=== PATIENT | male | born 1950 | race Caucasian/White ===

== ENCOUNTER → 2017-05-07 | Outpatient (CLI) | payer MEDICARE ==
[~2017-05-07] MED LIST: ASPIRIN81 M1 PO; JANUVIA25 MG PO; KEFLEX500 MG PO; METFORMIN500 MG PO; ZOCOR10 MG PO
== END | disposition home or self-care (01) ==
LOC: RAD 13:27
DX: M48.061 Spinal stenosis, lumbar region without neurogenic claudication (principal); M99.03 Segmental and somatic dysfunction of lumbar region

== ENCOUNTER → 2017-06-23 | Outpatient (CLI) | payer MEDICARE | END | disposition home or self-care (01) | LOC: D 10:32 | DX: E11.40 Type 2 diabetes mellitus with diabetic neuropathy, unspecified (principal) ==

== ENCOUNTER 2019-03-03 13:56 | Emergency (ER) | payer MEDICARE ==
[~2019-03-03] VITALS: Ht 182.8 cm; Wt 102.1 kg
[2019-03-03] MEDS ORDERED: CYCLOBENZAPRINE10 MG PO (15:58)
== END 2019-03-03 16:00 | disposition home or self-care (01) ==
LOC: ED 13:56
DX: M62.830 Muscle spasm of back (principal); M54.6 Pain in thoracic spine; E11.9 Type 2 diabetes mellitus without complications; Z88.8 Allergy status to other drugs, medicaments and biological substances; Z79.899 Other long term (current) drug therapy; Z79.82 Long term (current) use of aspirin

== ENCOUNTER 2019-04-11 09:24 | Emergency (ER) | payer MEDICARE ==
[~2019-04-11] VITALS: Ht 182.8 cm; Wt 103.4 kg
[~2019-04-11 09:24] MED LIST changes: +CYCLOBENZAPRINE10 MG PO
== END 2019-04-11 11:24 | disposition home or self-care (01) ==
LOC: ED 09:24
DX: M25.561 Pain in right knee (principal); Z88.8 Allergy status to other drugs, medicaments and biological substances; Z79.899 Other long term (current) drug therapy; Z79.82 Long term (current) use of aspirin; W18.39XA Other fall on same level, initial encounter; Y93.89 Activity, other specified; Y92.89 Other specified places as the place of occurrence of the external cause; Y99.8 Other external cause status

== ENCOUNTER 2020-04-01 12:14 | Emergency (ER) | payer MEDICARE ==
[2020-04-01 14:16] LABS: BASO % 0.3 % (0.0-1.0); EOS % 0.5 % (1.0-4.0); HEMATOCRIT 44.3 % (42.0-52.0); LYMPH # 0.9 10*3/uL (1.3-4.4); LYMPH % 24.9 % (27.0-41.0); MEAN CELL VOLUME 88.2 fl (80.0-94.0); MEAN CORPUSCULAR HGB 29.7 pg (27.0-31.0); MEAN CORPUSCULAR HGB CONC 33.6 g/dl (33.0-37.0); MEAN PLATELET VOLUME 10.3 fl (9.6-12.3); MONO # 0.4 10*3/uL (0.1-1.0); MONO % 11.9 % (3.0-9.0); NEUT # 2.3 10*3/uL (2.3-7.9); NEUT % 61.6 % (47.0-73.0); PLATELET COUNT AUTOMATED 150 10*3/uL (130-400); RED BLOOD COUNT 5.02 10*6/uL (4.50-5.90); RED CELL DISTRI WIDTH 12.2 % (0-14.5); WHITE BLOOD COUNT 3.7 10*3/uL (4.8-10.8)
[2020-04-01 14:29] LABS: ACT PARTIAL THROMBO TIME 26.5 SECONDS (20.0-32.1)
[2020-04-01 14:35] LABS: ALBUMIN 3.8 gm/dl (3.1-4.5); ALKALINE PHOSPHATASE 72 U/L (45-117); BUN 13 mg/dl (7-24); CHLORIDE 106 mmol/L (98-107); CREATININE 1.05 mg/dL (0.70-1.30); LIPASE 217 U/L (73-393); POTASSIUM 3.7 mmol/L (3.5-5.1); SGOT/AST 17 IU/L (3-35); SGPT/ALT 34 U/L (12-78); SODIUM 138 mmol/L (136-145); TOTAL PROTEIN 7.8 gm/dL (6.4-8.2)
[2020-04-01 14:36] LABS: TROPONIN I < 0.015 ng/ml (<0.045)
[2020-04-01] MEDS ORDERED: ZITHROMAX250 MG PO (16:25)
== END 2020-04-01 16:31 | disposition home or self-care (01) ==
LOC: ED 12:14
PROVIDERS: Emergency Medicine
DX: J06.9 Acute upper respiratory infection, unspecified (principal); Z20.828 Contact with and (suspected) exposure to other viral communicable diseases; J20.9 Acute bronchitis, unspecified; R79.1 Abnormal coagulation profile; Z88.8 Allergy status to other drugs, medicaments and biological substances; Z79.899 Other long term (current) drug therapy; Z79.82 Long term (current) use of aspirin

== ENCOUNTER 2022-03-03 18:14 | Emergency (ER) | payer MEDICARE ==
[~2022-03-03] VITALS: Ht 182.8 cm; Wt 106.6 kg
[~2022-03-03 18:14] MED LIST changes: +ZITHROMAX250 MG PO
== END 2022-03-03 21:02 | disposition home or self-care (01) ==
LOC: ED 18:14
DX: S40.011A Contusion of right shoulder, initial encounter (principal); S60.811A Abrasion of right wrist, initial encounter; Z88.8 Allergy status to other drugs, medicaments and biological substances; Z79.899 Other long term (current) drug therapy; Z79.2 Long term (current) use of antibiotics; Z79.82 Long term (current) use of aspirin; W01.198A Fall on same level from slipping, tripping and stumbling with subsequent striking against other object, initial encounter; Y93.01 Activity, walking, marching and hiking; Y92.59 Other trade areas as the place of occurrence of the external cause; Y99.8 Other external cause status

== ENCOUNTER 2022-09-11 14:30 | Emergency (ER) | payer MEDICARE ==
[~2022-09-11] VITALS: Wt 104.3 kg
[2022-09-11] MEDS ORDERED: METHOCARBAMOL500 M1 PO (16:48)
[2022-09-11] MEDS ORDERED: PREDNISONE20 M1 PO (16:48)
== END 2022-09-11 16:55 | disposition home or self-care (01) ==
LOC: ED 14:30
DX: M54.31 Sciatica, right side (principal); Z88.8 Allergy status to other drugs, medicaments and biological substances

== ENCOUNTER → 2023-07-15 | Outpatient (CLI) | payer MEDICARE ==
[~2023-07-15] MED LIST changes: +METHOCARBAMOL500 M1 PO; +PREDNISONE20 M1 PO
== END | disposition home or self-care (01) ==
LOC: RESCLI 14:06
PROVIDERS: ATTEND Internal Medicine
DX: E11.40 Type 2 diabetes mellitus with diabetic neuropathy, unspecified (principal); K21.9 Gastro-esophageal reflux disease without esophagitis; E78.5 Hyperlipidemia, unspecified; J45.909 Unspecified asthma, uncomplicated; N40.0 Benign prostatic hyperplasia without lower urinary tract symptoms; I10 Essential (primary) hypertension; Z98.890 Other specified postprocedural states; Z79.82 Long term (current) use of aspirin; Z79.84 Long term (current) use of oral hypoglycemic drugs; Z79.899 Other long term (current) drug therapy

== ENCOUNTER 2023-10-15 18:20 | Emergency (ER) | payer MEDICARE ==
[~2023-10-15] VITALS: Wt 98.9 kg
[2023-10-15 18:57] LABS: BASO % 0.4 % (0.0-1.0); EOS % 0.2 % (1.0-4.0); HEMATOCRIT 45.9 % (42.0-52.0); LYMPH # 0.7 10*3/uL (1.3-4.4); LYMPH % 13.9 % (27.0-41.0); MEAN CELL VOLUME 92.4 fl (80.0-94.0); MEAN CORPUSCULAR HGB CONC 32.5 g/dl (33.0-37.0); MEAN PLATELET VOLUME 9.9 fl (9.6-12.3); MONO # 0.5 10*3/uL (0.1-1.0); MONO % 9.3 % (3.0-9.0); NEUT # 3.7 10*3/uL (2.3-7.9); NEUT % 75.8 % (47.0-73.0); PLATELET COUNT AUTOMATED 142 10*3/uL (130-400); RED BLOOD COUNT 4.97 10*6/uL (4.50-5.90); WHITE BLOOD COUNT 4.8 10*3/uL (4.8-10.8)
[2023-10-15 19:18] LABS: BILIRUBIN Negative (Negative); BLOOD Negative (Negative); CLARITY Clear (Clear); COLOR Yellow (Yellow); GLUCOSE 3+ (Negative); KETONE 1+ (Negative); LEUKO ESTERASE Negative (Negative); NITRITE Negative (Negative); PH 5.5 (4.5-8.0); SPECIFIC GRAVITY >= 1.030 (1.001-1.030); UROBILINOGEN 0.2 E.U./dl (0.0-1.0)
[2023-10-15 19:25] LABS: ALKALINE PHOSPHATASE 97 U/L (46-116); BUN 12 mg/dl (9-23); CHLORIDE 104 mmol/L (98-107); SGPT/ALT 75 U/L (5-49); TOTAL PROTEIN 7.1 gm/dL (6.0-8.0)
[2023-10-15 19:26] LABS: EPITHELIAL CELLS 0-2; WBC 0-2 wbc/hpf (0-5)
== END 2023-10-15 19:57 | disposition home or self-care (01) ==
LOC: ED 18:20
PROVIDERS: Nurse Practitioner Family
DX: B34.9 Viral infection, unspecified (principal); R11.0 Nausea; Z88.8 Allergy status to other drugs, medicaments and biological substances

== ENCOUNTER 2025-01-07 09:38 | Emergency (ER) | payer MEDICARE ==
[~2025-01-07] VITALS: Ht 182.8 cm; Wt 99.3 kg
[~2025-01-07 09:38] MED LIST changes: +CREON DR 36,001 EAC1 PO; +JARDIANCE10 MG PO; +METFORMIN HYD1000 MG PO; -METFORMIN500 MG PO; +NEURONTIN300 MG PO
[2025-01-07] MEDS ORDERED: Sulfamethoxazole/Trimethopri 1 TAB TAB PO ONE (10:30)
[2025-01-07] MEDS ORDERED: SEPTDS PO (11:00)
== END 2025-01-07 11:10 | disposition home or self-care (01) ==
LOC: ED 09:38
DX: S50.11XA Contusion of right forearm, initial encounter (principal); Z88.8 Allergy status to other drugs, medicaments and biological substances; Z79.899 Other long term (current) drug therapy; Z90.49 Acquired absence of other specified parts of digestive tract; Z89.112 Acquired absence of left hand; W22.8XXA Striking against or struck by other objects, initial encounter; Y93.89 Activity, other specified; Y92.89 Other specified places as the place of occurrence of the external cause; Y99.8 Other external cause status